=== PATIENT | female | born 1965 ===

== ENCOUNTER 2020-06-25 22:03 | Inpatient (IN) | payer SELFPAY ==
[2020-06-25 23:58] LABS: Basophils % (Auto) 0.3 % (0.0-1.8); Eosinophils % (Auto) 0.1 % (0.0-4.3); Hematocrit 33.3 % (30.3-42.9); Hemoglobin 11.4 gm/dl (10.1-14.3); Lymphocytes # (Auto) 1.8 K/mm3 (1.2-5.4); Lymphocytes % (Auto) 13.8 % (13.4-35.0); Mean Corpuscular HGB Conc 34 % (30-34); Mean Corpuscular Volume 82 fl (79-97); Monocytes % (Auto) 8.1 % (0.0-7.3); Platelet Count 300 K/mm3 (140-440); Red Blood Count 4.07 M/mm3 (3.65-5.03); Red Cell Distribution Width 13.8 % (13.2-15.2)
[2020-06-26 00:21] LABS: Alanine Aminotransferase 13 units/L (7-56); Albumin 3.8 g/dL (3.9-5); Blood Urea Nitrogen 11 mg/dL (7-17); Calcium 8.9 mg/dL (8.4-10.2); Hemolysis Index 0
[2020-06-26 00:22] LABS: Bilirubin,Urine NEG (Negative); Blood,Urine SM (Negative); Color,Urine Yellow (Yellow); Mucus,Urine FEW /HPF; Protein,Urine <15 mg/dL mg/dL (Negative)
[2020-06-26 00:31] LABS: BUN/Creatinine Ratio 16
[2020-06-26] MEDS ORDERED: SODIUM CHLORIDE 0.9% 1000 ML 1,000 ML IV ONE ×2 (03:54→05:37)
--- NOTE | 2020-06-26 03:58 | Emergency Department Report ---
ED Abdominal Pain HPI - General Chief Complaint: Abdominal Pain Stated Complaint: ABD PAIN Source: patient Mode of arrival: Ambulatory Limitations: No Limitations - History of Present Illness Initial Comments: The patient was evaluated in the emergency department for symptoms described in the history of present illness. He/she was evaluated in the context of the global COVID-19 pandemic, which necessitated consideration that the patient might be at risk for infection with the virus that causes COVID-19. Institutional protocols and algorithms that pertain to the evaluation of patients at risk for COVID-19 are in a state of rapid change based on information released by regulatory bodies including the CDC and federal and state organizations. These policies and algorithms were followed during the patient's care in the emergency department. Please note that these policies, procedures and recommendations changed on a rapid basis. 55-year-old female presents to the emergency room for abdominal pain and back pain x1 day. Has been having intermittent fevers x1 week with a T-max of 102. Patient states that she is currently being treated for urinary tract infection and is on Augmentin started 06/20/2020. Patient states that her abdominal pains are sharp and is been having dark mucus bloody stools. Patient admits to nausea and vomiting x1 this morning. She denies any dysuria. Does admit to diarrhea. Does not have any sick contacts, no recent travels. Denies any past medical history currently takes no medications on a daily basis. MD Complaint: abdominal pain Location: LLQ Severity scale (0 -10): 9 Quality: sharp Consistency: intermittent Improves With: nothing Worsens With: nothing Associated Symptoms: nausea, vomiting, diarrhea, fever - Related Data Allergies Allergy/AdvReac Type Severity Reaction Status Date / Time No Known Allergies Allergy Unverified 06/25/20 23:28 ED Review of Systems ROS: Stated complaint: ABD PAIN Other details as noted in HPI Comment: All other systems reviewed and negative ED Past Medical Hx - Past Medical History Previous Medical History?: No - Surgical History Past Surgical History?: No - Social History Smoking Status: Never Smoker Substance Use Type: None ED Physical Exam - General Limitations: No Limitations General appearance: alert - Head Head exam: Present: atraumatic, normocephalic - Eye Eye exam: Present: normal appearance - ENT ENT exam: Present: mucous membranes moist - Neck Neck exam: Present: normal inspection, full ROM - Respiratory Respiratory exam: Present: normal lung sounds bilaterally. Absent: chest wall tenderness, accessory muscle use - Cardiovascular Cardiovascular Exam: Present: tachycardia - GI/Abdominal GI/Abdominal exam: Present: soft, tenderness, guarding (Left lower quadrant), normal bowel sounds. Absent: distended - Neurological Exam Neurological exam: Present: alert, oriented X3 - Psychiatric Psychiatric exam: Present: normal affect, normal mood - Skin Skin exam: Present: warm, dry, intact, normal color. Absent: rash ED Course Vital Signs 06/25/20 23:19 Temperature 101.8 F H Pulse Rate 103 H Respiratory 16 Rate Blood Pressure 120/72 O2 Sat by Pulse 98 Oximetry - Reevaluation(s) Reevaluation #1: 06/26/20 05:39 Patient was reevaluated by this provider states that the pain medication has helped some. Spoke to Dr. Higginbotham general surgeon he would like patient to be admitted and consult. Spoke to hospitalist he is aware of the patient and is evaluating her for admis ross. Admit to the hospital with bridge orders placed. ED Medical Decision Making - Lab Data Result diagrams: 06/25/20 23:36 06/25/20 23:36 - Radiology Data Radiology results: report reviewed Patient: LENY JAMES MR #: [id number] : 1965 Acct:[id number] Age/Sex: 55 / F ADM Date: 06/25/20 Loc: ED Attending Dr: Ordering Physician: PATEL SOLIS Date of Service: 06/26/20 Procedure(s): CT abdomen pelvis w con Accession Number(s): [id number] cc: PATEL SOLIS CT abdomen pelvis w con INDICATION: Left lower quadrant abdominal pain. TECHNIQUE: All CT scans at this location are performed using the following dose modulation technique: Automated exposure control. Helical slices were obtained through the abdomen and pelvis. 100 cc of Omnipaque 300 is administered. COMPARISON: None available. FINDINGS: Abdomen: No acute abnormality is seen in the lower chest. There is a cyst in the right lobe of the liver. There is a 12 mm enhancing nodule in the dome of the liver anteriorly, series 2 image 27. The spleen, pancreas, adrenal glands, and kidneys show no acute abnormality. The aorta is normal in diameter. Pelvis: There is severe diverticulitis involving the mid sigmoid colon. There is marked inflammation involving the colon pericolonic fat. There is an intramural abscess which measures approximately 3 x 4.9 cm. There are a few small bubbles of extraluminal gas adjacent to the sigmoid colon. There is a 4.5 cm fat density mass with small soft tissue component in the left adnexa. The appendix is unremarkable. On review of bone windows, no acute osseous abnormalities are seen. IMPRESSION: 1. There is relatively severe sigmoid diverticulitis. There is an intramural abscess. There is a small amount of extraluminal gas adjacent to the sigmoid colon. 2. There is a 4.5 cm dermoid in the left adnexa. 3. There is a 12 mm enhancing nodule in the dome of the liver. This is not specific. This may represent an atypical hemangioma. Neoplastic process cannot be excluded Signer Name: Gautam Liz MD Signed: 06/26/2020 4:36 AM Workstation Name: [id number] Transcribed By: Dictated By: Gautam Liz MD Electronically Authenticated By: Gautam Liz MD Signed Date/Time: 06/26/20435 DD/ 9 TD/TT: - Medical Decision Making 55-year-old female presents to the emergency room for abdominal pain and back pain x1 day. Has been having intermittent fevers x1 week with a T-max of 102. Patient states that she is currently being treated for urinary tract infection and is on Augmentin started 06/20/2020. Patient states that her abdominal pains are sharp and is been having dark mucus bloody stools. Patient admits to nausea and vomiting x1 this morning. She denies any dysuria. Does admit to diarrhea. Does not have any sick contacts, no recent travels. Denies any past medical history currently takes no medications on a daily basis. CBC shows a mild WBC of 12.7 chemistry unremarkable urinalysis shows a small amount of blood WBCs of 7 - leukoesterase. IV, CT of abdomen and pelvis with contrast and normal saline 1 L has been ordered. CT abdomen and pelvis with contrast shows the patient has severe sigmoid diverticulitis with intramural abscess involving the mid sigmoid colon. 4.5 cm dermoid in the left adnexal and a 12 mm enhancing nodule in the dome of the liver. Patient was started on Levaquin 500 mg IV Flagyl 500 mg IV patient has been given morphine 2 mg IV Zofran 4 mg IV. Initiated another liter of fluids. Patient will be admitted to the hospital with a consult from Dr. Higginbotham general surgeon discuss plan with patient and daughter that she will need to be adm itted. - Differential Diagnosis Diverticulitis, kidney stone, urinary tract infection Critical care attestation.: If time is entered above; I have spent that time in minutes in the direct care of this critically ill patient, excluding procedure time. ED Disposition Clinical Impression: Diverticulitis, Abscess of sigmoid colon due to diverticulitis, Acute abdominal pain, Back pain Disposition: OP ADMIT IP TO THIS HOSP Is pt being admited?: Yes Does the pt Need Aspirin: No Condition: Stable Instructions: Abdominal Pain (ED) Referrals: KJ MCGOWAN MD [Primary Care Provider] - 3-5 Days
[2020-06-26] MEDS ORDERED: MORPHINE 2 MG/1 ML INJ IV ONE (04:00)
[2020-06-26] MEDS ORDERED: ONDANSETRON 4 MG/2 ML INJ IV ONE (04:00)
--- NOTE | 2020-06-26 04:40 | Cat Scan Report ---
CT abdomen pelvis w con INDICATION: Left lower quadrant abdominal pain. TECHNIQUE: All CT scans at this location are performed using the following dose modulation technique: Automated exposure control. Helical slices were obtained through the abdomen and pelvis. 100 cc of Omnipaque 30 0 is administered. COMPARISON: None available. FINDINGS: Abdomen: No acute abnormality is seen in the lower chest. There is a cyst in the right lobe of the li beatris. There is a 12 mm enhancing nodule in the dome of the liver anteriorly, series 2 image 27. The sp anish, pancreas, adrenal glands, and kidneys show no acute abnormality. The aorta is normal in diamete r. Pelvis: There is severe diverticulitis involving the mid sigmoid colon. There is marked inflammation involving the colon pericolonic fat. There is an intramural abscess which measures approximately 3 x 4.9 cm. There are a few small bubbles of extraluminal gas adjacent to the sigmoid colon. There is a 4.5 cm fat density mass with small soft tissue component in the left adnexa. The appendix is unremarkable. On review of bone windows, no acute osseous abnormalities are seen. IMPRESSION: 1. There is relatively severe sigmoid diverticulitis. There is an intramural abscess. There is a smal l amount of extraluminal gas adjacent to the sigmoid colon. 2. There is a 4.5 cm dermoid in the left adnexa. 3. There is a 12 mm enhancing nodule in the dome of the liver. This is not specific. This may represe nt an atypical hemangioma. Neoplastic process cannot be excluded Signer Name: Gautam Liz MD Signed: 06/26/2020 4:36 AM Workstation Name: [id number]
[2020-06-26] MEDS ORDERED: metroNIDAZOLE/NS 500 MG/100 ML 500 MG/100 ML BAG IV ONE (04:59)
--- NOTE | 2020-06-26 05:31 | History and Physical Report ---
History of Present Illness Date of examination: 06/26/20 Date of admission: 06/26/2020 Chief complaint: Abdominal Pain Nausea and Vomiting Past History Past Medical History: No medical history Past Surgical History: No surgical history Social history: no significant social history Family history: no significant family history Medications and Allergies Allergies Allergy/AdvReac Type Severity Reaction Status Date / Time No Known Allergies Allergy Unverified 06/25/20 23:28 Active Meds: Active Medications Levofloxacin/Dextrose (Levaquin 500mg/100ml) 500 mg in 100 mls @ 100 mls/hr IV ONCE ONE; Protocol Stop: 06/26/20 05:58 Review of Systems Constitutional: fever, chills Ears, nose, mouth and throat: no nasal congestion, no sore throat Cardiovascular: no chest pain, no palpitations Respiratory: no cough, no shortness of breath Gastrointestinal: abdominal pain, nausea, vomiting, diarrhea Genitourinary Female: no pelvic pain, no flank pain, no hematuria Musculoskeletal: no neck pain, no low back pain Integumentary: no rash, no pruritis Neurological: no headaches, no confusion Psychiatric: no anxiety, no depression Exam - Constitutional Vitals: Temp Pulse Resp BP Pulse Ox 101.8 F H 103 H 16 120/72 98 06/25/20 23:19 06/25/20 23:19 06/25/20 23:19 06/25/20 23:19 06/25/20 23:19 General appearance: Present: no acute distress, well-nourished - EENT Eyes: Present: PERRL, EOM intact. Absent: scleral icterus ENT: hearing intact, clear oral mucosa, dentition normal - Neck Neck: Present: supple, normal ROM - Respiratory Respiratory effort: normal Respiratory: bilateral: CTA - Cardiovascular Rhythm: regular Heart Sounds: Present: S1 & S2. Absent: gallop, systolic murmur, diastolic murmur, rub - Extremities Extremities: no ischemia, pulses intact, pulses symmetrical, No edema, Full ROM Peripheral Pulses: within normal limits - Abdominal General gastrointestinal: Present: soft, tender, non-distended, normal bowel sounds, mass Localized gastrointestinal: tender: LLQ - Integumentary Integumentary: Present: clear, warm, dry. Absent: rash - Musculoskeletal Musculoskeletal: strength equal bilaterally - Psychiatric Psychiatric: appropriate mood/affect, intact judgment & insight, memory intact, cooperative - Neurologic Neurologic: CNII-XII intact, moves all extremities Results - Labs CBC & Chem 7: 06/25/20 23:36 06/25/20 23:36 Labs: Abnormal lab results 06/25/20 06/25/20 06/25/20 Range/Units 00:01 23:36 23:36 WBC 12.7 H (4.5-11.0) K/mm3 [place] % (Auto) 8.1 H (0.0-7.3) % [place] # (Auto) 1.0 H (0.0-0.8) K/mm3 Seg Neutrophils % 77.7 H (40.0-70.0) % Seg Neutrophils # 9.9 H (1.8-7.7) K/mm3 Glucose 107 H (65-100) mg/dL Albumin 3.8 L (3.9-5) g/dL Urine WBC (Auto) 7.0 H (0.0-6.0) /HPF Assessment and Plan - Patient Problems (1) Diverticulitis Current Visit: Yes Status: Acute (2) DVT prophylaxis Current Visit: Yes Status: Acute (3) Full code status Current Visit: Yes Status: Acute
[2020-06-26] MEDS ORDERED: MORPHINE 2 MG/1 ML INJ IV PRN (05:58)
[2020-06-26] MEDS ORDERED: ACETAMINOPHEN 325 MG TAB PO PRN (05:58)
[2020-06-26] MEDS ORDERED: ONDANSETRON 4 MG/2 ML INJ IV PRN (05:58)
--- NOTE | 2020-06-26 05:58 | History and Physical Report ---
History of Present Illness Date of examination: 06/26/20 Date of admission: 06/26/2020 Chief complaint: Abdominal pain Nausea and Vomiting. Fever History of present illness: 55-year-old female with no significant past medical history presenting to the emergency room today complaining of abdominal pain and back pain which has been ongoing for about 1 day. She has also been having some diarrhea which is occasionally bloody. She has had some low-grade fever at home. Patient was just recently treated at an outside facility for UTI and she had been on Augmentin. She has been having nausea and vomiting, no chest pain or shortness of breath, no hematuria or dysuria, no headache or dizziness, denies any cough, denies any sick contacts and no recent travel. Denies any contact with anyone with COVID- 19. Work-up in the emergency room today including CT scan of the abdomen and pelvis reveals: 1. There is relatively severe sigmoid diverticulitis. There is an intramural abscess. There is a small amount of extraluminal gas adjacent to the sigmoid colon. 2. There is a 4.5 cm dermoid in the left adnexa. 3. There is a 12 mm enhancing nodule in the dome of the liver. This is not specific. This may represent an atypical hemangioma. Neoplastic process cannot be excluded . Patient has been started on empiric IV antibiotics and IV fluid. General surgeon Dr. Higginbotham has been consulted and notified by the ER physician. Past History Past Medical History: No medical history Past Surgical History: No surgical history Social history: no significant social history Family history: no significant family history Medications and Allergies Allergies Allergy/AdvReac Type Severity Reaction Status Date / Time No Known Allergies Allergy Unverified 06/25/20 23:28 Active Meds: Active Medications Levofloxacin/Dextrose (Levaquin 500mg/100ml) 500 mg in 100 mls @ 100 mls/hr IV ONCE ONE; Protocol Stop: 06/26/20 05:58 Sodium Chloride (Nacl 0.9% 1000 Ml) 1,000 mls @ 999 mls/hr IV BOLUS ONE Stop: 06/26/20 06:37 Review of Systems Constitutional: fever, no chills Cardiovascular: no chest pain, no palpitations Respiratory: no cough, no shortness of breath Gastrointestinal: abdominal pain, nausea, vomiting, diarrhea, hematochezia, no hematemesis Genitourinary Female: no pelvic pain, no flank pain, no hematuria Musculoskeletal: low back pain, no neck pain Neurological: no headaches, no confusion Psychiatric: no anxiety, no depression Exam - Constitutional Vitals: Temp Pulse Resp BP Pulse Ox 101.8 F H 103 H 16 120/72 98 06/25/20 23:19 06/25/20 23:19 06/25/20 23:19 06/25/20 23:19 06/25/20 23:19 General appearance: Present: no acute distress, well-nourished - EENT Eyes: Present: PERRL, EOM intact. Absent: scleral icterus ENT: hearing intact, clear oral mucosa, dentition normal - Neck Neck: Present: supple, normal ROM - Respiratory Respiratory effort: normal Respiratory: bilateral: CTA - Cardiovascular Rhythm: regular Heart Sounds: Present: S1 & S2. Absent: gallop, systolic murmur, diastolic murmur, rub - Extremities Extremities: no ischemia, pulses intact, pulses symmetrical, No edema, Full ROM Peripheral Pulses: within normal limits - Abdominal General gastrointestinal: Present: soft, tender, non-distended, normal bowel sounds. Absent: mass Localized gastrointestinal: tender: LLQ, guarding: LLQ - Integumentary Integumentary: Present: clear, warm, dry. Absent: rash - Musculoskeletal Musculoskeletal: strength equal bilaterally - Psychiatric Psychiatric: appropriate mood/affect, intact judgment & insight, memory intact, cooperative - Neurologic Neurologic: CNII-XII intact, moves all extremities Results - Labs CBC & Chem 7: 06/25/20 23:36 06/25/20 23:36 Labs: Abnormal lab results 06/25/20 06/25/20 06/25/20 Range/Units 00:01 23:36 23:36 WBC 12.7 H (4.5-11.0) K/mm3 [place] % (Auto) 8.1 H (0.0-7.3) % [place] # (Auto) 1.0 H (0.0-0.8) K/mm3 Seg Neutrophils % 77.7 H (40.0-70.0) % Seg Neutrophils # 9.9 H (1.8-7.7) K/mm3 Glucose 107 H (65-100) mg/dL Albumin 3.8 L (3.9-5) g/dL Urine WBC (Auto) 7.0 H (0.0-6.0) /HPF Assessment and Plan - Patient Problems (1) Diverticulitis Current Visit: Yes Status: Acute Plan to address problem: Patient placed on empiric IV antibiotics. General surgeon has also been consulted for evaluation and recommendation. (2) DVT prophylaxis Current Visit: Yes Status: Acute Plan to address problem: Patient placed on sequential compression device. (3) Full code status Current Visit: Yes Status: Acute
[2020-06-26] MEDS: SODIUM CHLORIDE 0.9% 1000 ML 1,000 ML IV SCH ×2 (09:25→20:24)
--- NOTE | 2020-06-26 14:00 | Event Note ---
Date: 06/26/20 Diverticular abscess noted. NPO after MN except sips of water with meds. Will attempt drainage tomorrow.
[2020-06-26] MEDS: metroNIDAZOLE/NS 500 MG/100 ML 500 MG/100 ML BAG IV SCH ×2 (15:01→22:06)
--- NOTE | 2020-06-26 15:12 | Event Note ---
Date: 06/26/20 Patient seen and examined 55-year-old female with no significant past medical history presenting to the emergency room complaining of abdominal pain and back pain which has been ongoing for about 1 day along with diarrhea and some low-grade fever at home. Patient was just recently treated at an outside facility for UTI and she had been on Augmentin. Work-up in the emergency room today including CT scan of the abdomen and pelvis reveals: 1. There is relatively severe sigmoid diverticulitis. There is an intramural abscess. There is a small amount of extraluminal gas adjacent to the sigmoid colon. 2. There is a 4.5 cm dermoid in the left adnexa. 3. There is a 12 mm enhancing nodule in the dome of the liver. This is not specific. This may represent an atypical hemangioma. Neoplastic process cannot be excluded . Patient has been started on empiric IV antibiotics and IV fluid. General surgeon Dr. Higginbotham has been consulted and recommended percutaneous drainage IR consulted and plan for percutaneous drainage tomorrow Continue current management and plan, monitor clinically
--- NOTE | 2020-06-26 16:40 | Consultation ---
History of Present Illness Consult date: 06/26/20 Reason for consult: abdominal pain - History of present illness History of present illness: 55 yo female with LLQ pain Past History Past Medical History: No medical history Past Surgical History: No surgical history Social history: no significant social history Family history: no significant family history Medications and Allergies Allergies Allergy/AdvReac Type Severity Reaction Status Date / Time No Known Allergies Allergy Unverified 06/25/20 23:28 Active Meds: Active Medications Acetaminophen (Tylenol) 650 mg PO Q4H PRN PRN Reason: Pain MILD(1-3)/Fever >100.5/JERNIGAN Sodium Chloride (Nacl 0.9% 1000 Ml) 1,000 mls @ 125 mls/hr IV DIRECT MUSA Last Admin: 06/26/20 09:25 Dose: 125 mls/hr Documented by: Levofloxacin/Dextrose (Levaquin 750mg/150ml) 750 mg in 150 mls @ 100 mls/hr IV Q24HR MUSA; Protocol Last Admin: 06/26/20 09:24 Dose: 100 mls/hr Documented by: Metronidazole (Flagyl 500 Mg/100 Ml) 500 mg in 100 mls @ 100 mls/hr IV Q8HR MUSA; Protocol Last Admin: 06/26/20 15:01 Dose: 100 mls/hr Documented by: Morphine Sulfate (Morphine) 2 mg IV Q4H PRN PRN Reason: Pain, Moderate (4-6) Last Admin: 06/26/20 15:17 Dose: 2 mg Documented by: Ondansetron HCl (Zofran) 4 mg IV Q8H PRN PRN Reason: Nausea And Vomiting Sodium Chloride (Sodium Chloride Flush Syringe 10 Ml) 10 ml IV BID MUSA Last Admin: 06/26/20 09:25 Dose: 10 ml Documented by: Sodium Chloride (Sodium Chloride Flush Syringe 10 Ml) 10 ml IV PRN PRN PRN Reason: LINE FLUSH Review of Systems All systems: negative (none) Exam Vital Signs Temp Pulse Resp BP Pulse Ox 101.8 F H 103 H 16 120/72 98 06/25/20 23:19 06/25/20 23:19 06/25/20 23:19 06/25/20 23:19 06/25/20 23:19 - General physical appearance Positive: well developed, well nourished, no distress - Eyes Positive: PERRL, normal occular movement - ENT Positive: normal pinna, normal nares, normal mucosa, no hearing loss, no congestion - Neck Positive: no masses, no bruits, trachea midline, no venous distension - Respiratory Positive: normal expansion, normal respiratory effort, clear to auscultation - Cardiovascular Rhythm: regular Heart Sounds: Present: S1 & S2. Absent: rub, click - Extremities Extremities: no ischemia, pulses symmetrical, No edema - Breasts Breasts: normal, no mass, no skin changes - Abdomen Abdomen: Present: other (Soft with BLQ tenderness, L>R; No rebound or guarding. BS hypoactive.) Hernia: none - Genitourinary Male Genitourinary: normal Female Genitourinary: normal - Integumentary no rash, no growths, no abnormal pigmentation - Neurologic Neurologic: alert and oriented to time, place and person, motor strength and sensation are grossly intact - Musculoskeletal normal gait, normal posture - Psychiatric Psychiatric: appropriate mood/affect, intact judgment & insight Results - Labs 06/25/20 23:36 06/25/20 23:36 Abnormal lab results 06/25/20 06/25/20 06/25/20 Range/Units 00:01 23:36 23:36 WBC 12.7 H (4.5-11.0) K/mm3 [place] % (Auto) 8.1 H (0.0-7.3) % [place] # (Auto) 1.0 H (0.0-0.8) K/mm3 Seg Neutrophils % 77.7 H (40.0-70.0) % Seg Neutrophils # 9.9 H (1.8-7.7) K/mm3 Glucose 107 H (65-100) mg/dL Albumin 3.8 L (3.9-5) g/dL Urine WBC (Auto) 7.0 H (0.0-6.0) /HPF Diabetes panel 06/25/20 Range/Units 23:36 Sodium 137 (137-145) mmol/L Potassium 3.8 (3.6-5.0) mmol/L Chloride 98.3 (98-107) mmol/L Carbon Dioxide 24 (22-30) mmol/L BUN 11 (7-17) mg/dL Creatinine 0.7 (0.6-1.2) mg/dL Glucose 107 H (65-100) mg/dL Calcium 8.9 (8.4-10.2) mg/dL AST 14 (5-40) units/L ALT 13 (7-56) units/L Alkaline Phosphatase 84 (35-129) units/L Total Protein 7.7 (6.3-8.2) g/dL Albumin 3.8 L (3.9-5) g/dL Calcium panel 06/25/20 Range/Units 23:36 Calcium 8.9 (8.4-10.2) mg/dL Albumin 3.8 L (3.9-5) g/dL Pituitary panel 06/25/20 Range/Units 23:36 Sodium 137 (137-145) mmol/L Potassium 3.8 (3.6-5.0) mmol/L Chloride 98.3 (98-107) mmol/L Carbon Dioxide 24 (22-30) mmol/L BUN 11 (7-17) mg/dL Creatinine 0.7 (0.6-1.2) mg/dL Glucose 107 H (65-100) mg/dL Calcium 8.9 (8.4-10.2) mg/dL Adrenal panel 06/25/20 Range/Units 23:36 Sodium 137 (137-145) mmol/L Potassium 3.8 (3.6-5.0) mmol/L Chloride 98.3 (98-107) mmol/L Carbon Dioxide 24 (22-30) mmol/L BUN 11 (7-17) mg/dL Creatinine 0.7 (0.6-1.2) mg/dL Glucose 107 H (65-100) mg/dL Calcium 8.9 (8.4-10.2) mg/dL Total Bilirubin 0.40 (0.1-1.2) mg/dL AST 14 (5-40) units/L ALT 13 (7-56) units/L Alkaline Phosphatase 84 (35-129) units/L Total Protein 7.7 (6.3-8.2) g/dL Albumin 3.8 L (3.9-5) g/dL - Imaging CT scan - abdomen: report reviewed CT scan - pelvis: report reviewed Assessment and Plan - Patient Problems (1) Abscess of sigmoid colon due to diverticulitis Current Visit: Yes Status: Acute Plan to address problem: 1) NPO 2) Broad spectrum IV antibiotics 3) IR drainage tomorrow 4) Surgical intervention if the above fails (doubtful)
[2020-06-27] MEDS: metroNIDAZOLE/NS 500 MG/100 ML 500 MG/100 ML BAG IV SCH ×3 (05:48→21:27)
[2020-06-27 06:23] LABS: Basophils % (Auto) 0.3 % (0.0-1.8); Eosinophils % (Auto) 0.1 % (0.0-4.3); Hematocrit 31.4 % (30.3-42.9); Hemoglobin 10.6 gm/dl (10.1-14.3); Lymphocytes # (Auto) 1.1 K/mm3 (1.2-5.4); Lymphocytes % (Auto) 10.6 % (13.4-35.0); Mean Corpuscular HGB Conc 34 % (30-34); Mean Corpuscular Volume 81 fl (79-97); Monocytes # (Auto) 0.8 K/mm3 (0.0-0.8); Monocytes % (Auto) 7.8 % (0.0-7.3); Platelet Count 267 K/mm3 (140-440); Red Blood Count 3.89 M/mm3 (3.65-5.03); Red Cell Distribution Width 13.8 % (13.2-15.2)
[2020-06-27 06:31] LABS: INR 1.36 (0.87-1.13)
[2020-06-27 06:44] LABS: Blood Urea Nitrogen 8 mg/dL (7-17); Calcium 8.7 mg/dL (8.4-10.2); Hemolysis Index 1
[2020-06-27 06:48] LABS: BUN/Creatinine Ratio 13
[2020-06-27] MEDS ORDERED: POTASSIUM CHLORIDE ER 20 MEQ TAB PO SCH (08:00)
[2020-06-27] MEDS ORDERED: fentaNYL 100 MCG/2 ML INJ ONE (09:24)
[2020-06-27] MEDS ORDERED: MIDAZOLAM 5 MG/5 ML INJ MDV IV ONE ×2 (09:24→09:34)
[2020-06-27] MEDS ORDERED: fentaNYL 100 MCG/2 ML INJ IV ONE (09:34)
--- NOTE | 2020-06-27 10:56 | Event Note ---
Date: 06/27/[address] guided drainage of the abdomen and pelvis. Ems Manager CT performed. The collection of fluid has been replaced by gas and there is more foci of gas around the inflamed sigmoid colon. This is concerning for perforated diverticulitis. In order to fully evaluate this possibility, I contacted Dr. Higginbotham. I will order a CT of the abdomen and pelvis with IV contrast for Dr. Higginbotham. Drainage cancelled.
--- NOTE | 2020-06-27 11:16 | Progress Note ---
Assessment and Plan - Patient Problems (1) Abscess of sigmoid colon due to diverticulitis Current Visit: Yes Status: Acute Plan to address problem: 1) Pt is afebrile and vital signs are normal. WBC count has normalized. Will await the results of the repeat CT abdomen and pelvis ordered by Dr. Koo. 2) Continue bowel rest and IV antibiotics for now. Subjective Date of service: 06/27/20 Narrative: See Dr. Koo's note of 10:51 this morning. Objective Vital Signs - 12hr 06/27/20 06/27/20 04:44 10:36 Temperature 98.7 F Pulse Rate 80 Pulse Rate [Pre 89 -Procedure] Respiratory 18 Rate Respiratory 13 Rate [Pre- Procedure] Blood Pressure 126/70 Blood Pressure 135/75 [Pre-Procedure] O2 Sat by Pulse 98 Oximetry O2 Sat by Pulse 100 Oximetry [Pre- Procedure] - Labs 06/27/20 05:12 06/27/20 05:12 Diabetes panel 06/27/20 Range/Units 05:12 Sodium 143 (137-145) mmol/L Potassium 3.4 L (3.6-5.0) mmol/L Chloride 106.1 (98-107) mmol/L Carbon Dioxide 23 (22-30) mmol/L BUN 8 (7-17) mg/dL Creatinine 0.6 (0.6-1.2) mg/dL Glucose 78 (65-100) mg/dL Calcium 8.7 (8.4-10.2) mg/dL Calcium panel 06/27/20 Range/Units 05:12 Calcium 8.7 (8.4-10.2) mg/dL Pituitary panel 06/27/20 Range/Units 05:12 Sodium 143 (137-145) mmol/L Potassium 3.4 L (3.6-5.0) mmol/L Chloride 106.1 (98-107) mmol/L Carbon Dioxide 23 (22-30) mmol/L BUN 8 (7-17) mg/dL Creatinine 0.6 (0.6-1.2) mg/dL Glucose 78 (65-100) mg/dL Calcium 8.7 (8.4-10.2) mg/dL Adrenal panel 06/27/20 Range/Units 05:12 Sodium 143 (137-145) mmol/L Potassium 3.4 L (3.6-5.0) mmol/L Chloride 106.1 (98-107) mmol/L Carbon Dioxide 23 (22-30) mmol/L BUN 8 (7-17) mg/dL Creatinine 0.6 (0.6-1.2) mg/dL Glucose 78 (65-100) mg/dL Calcium 8.7 (8.4-10.2) mg/dL
--- NOTE | 2020-06-27 11:36 | Cat Scan Report ---
CT ABDOMEN AND PELVIS WITH CONTRAST INDICATION / CLINICAL INFORMATION: Diverticulitis TECHNIQUE: Axial CT images were obtained through the abdomen and pelvis after 100 cc Omnipaque 300 milligrams pe rcent IV contrast. All CT scans at this location are performed using CT dose reduction for ALARA by means of automated exposure control. COMPARISON: Exam is compared to 06/26/2020 FINDINGS: LOWER CHEST: No significant abnormality. LIVER: Hepatic cyst is again identified. Small cavernous hemangioma dome the liver again noted GALLBLADDER: No significant abnormality. BILE DUCTS: No significant abnormality. PANCREAS: No significant abnormality. SPLEEN: No significant abnormality. ADRENALS: No significant abnormality. RIGHT KIDNEY and URETER: No significant abnormality. LEFT KIDNEY and URETER: No significant abnormality. STOMACH and SMALL BOWEL: No significant abnormality. COLON: Again noted inflammatory changes sigmoid colon consistent with diverticulitis. Abscess is agai n identified with increased in air content as compared to previous exam. The abscess measures approxi mately 5.2 x 3.9 cm. APPENDIX: No significant abnormality. PERITONEUM: No free fluid. No free air. No fluid collection. LYMPH NODES: No significant adenopathy. AORTA and ARTERIES: No significant abnormality. IVC and VEINS: No significant abnormality. URINARY BLADDER: No significant abnormality. REPRODUCTIVE ORGANS: 4.5 cm fat-containing lesion noted left adnexa ADDITIONAL FINDINGS: None. SKELETAL SYSTEM: No significant abnormality. IMPRESSION: 1. Persistent abscess secondary to diverticulitis sigmoid colon 2. Stable dermoid left adnexa 3. Small cavernous hemangioma dome of the liver 4. Hepatic cyst Signer Name: Arnaldo Brock MD Signed: 06/27/2020 11:31 AM Workstation Name: [id number]
[2020-06-27] MEDS: SODIUM CHLORIDE 0.9% 1000 ML 1,000 ML IV SCH (13:03)
--- NOTE | 2020-06-27 14:48 | Progress Note ---
Assessment and Plan --Diverticulitis Patient placed on empiric IV antibiotics. General surgeon has also been consulted for evaluation and recommendation. --sigmoid colon abscess Possibility for perforated diverticulitid not drainable per IR, cont iv abx, bowel rest, IV fluid --Hypokalemia, replete, monitor BMP --SIRS w/o sepsis, POA presented with fever, leukocytosis and abdominal abscess cont abx -- DVT prophylaxis Patient placed on sequential compression device. -- Full code status Brief History: 55-year-old female with no significant past medical history presenting to the emergency room complaining of abdominal pain and back pain which has been ongoing for about 1 day along with diarrhea and some low-grade fever at home. Patient was just recently treated at an outside facility for UTI and she had been on Augmentin. Work-up in the emergency room today including CT scan of the abdomen and pelvis reveals: 1. There is relatively severe sigmoid diverticulitis. There is an intramural abscess. There is a small amount of extraluminal gas adjacent to the sigmoid colon. 2. There is a 4.5 cm dermoid in the left adnexa. 3. There is a 12 mm enhancing nodule in the dome of the liver. This is not specific. This may represent an atypical hemangioma. Neoplastic process cannot be excluded . Patient has been started on empiric IV antibiotics and IV fluid. 06/26: General surgeon Dr. Higginbotham has been consulted and recommended percutaneous drainage IR consulted and planned for percutaneous drainage tomorrow. Continue current management and plan, monitor clinically 06/27: Patient Brought downstairs for CT guided drainage of the abdomen and pelvis. Per IR The collection of fluid has been replaced by gas and there is more foci of gas around the inflamed sigmoid colon. Aborted the procedure, repeat CT showed persisted abscess but no perforation. Surgery and IR now recommended medical Mx. cont Iv abx Subjective Date of service: 06/27/20 Interval history: Patient seen and examined c/o abdominal pain afebrile vitals noted Objective - Exam Narrative Exam: General appearance: Present: no acute distress, well-nourished - EENT Eyes: Present: PERRL, EOM intact. Absent: scleral icterus ENT: hearing intact, clear oral mucosa, dentition normal - Neck Neck: Present: supple, normal ROM - Respiratory Respiratory effort: normal Respiratory: bilateral: CTA - Cardiovascular Rhythm: regular Heart Sounds: Present: S1 & S2. Absent: gallop, systolic murmur, diastolic murmur, rub - Extremities Extremities: no ischemia, pulses intact, pulses symmetrical, No edema, Full ROM Peripheral Pulses: within normal limits - Abdominal General gastrointestinal: Present: soft, tender, non-distended, normal bowel sounds. Absent: mass Localized gastrointestinal: tender: LLQ, guarding: LLQ - Integumentary Integumentary: Present: clear, warm, dry. Absent: rash - Musculoskeletal Musculoskeletal: strength equal bilaterally - Psychiatric Psychiatric: appropriate mood/affect, intact judgment & insight, memory intact, cooperative - Neurologic Neurologic: CNII-XII intact, moves all extremities - Constitutional Vitals: Vital Signs - 12hr 06/27/20 06/27/20 06/27/20 04:44 10:36 12:11 Temperature 98.7 F 98.8 F Pulse Rate 80 79 Pulse Rate [Pre 89 -Procedure] Respiratory 18 20 Rate Respiratory 13 Rate [Pre- Procedure] Blood Pressure 126/70 131/72 Blood Pressure 135/75 [Pre-Procedure] O2 Sat by Pulse 98 97 Oximetry O2 Sat by Pulse 100 Oximetry [Pre- Procedure] - Labs CBC & Chem 7: 06/28/20 09:54 06/28/20 09:54 Labs: Abnormal lab results 06/27/20 06/27/20 06/27/20 Range/Units 05:12 05:12 05:12 MCH 27 L (28-32) pg Lymph % (Auto) 10.6 L (13.4-35.0) % [place] % (Auto) 7.8 H (0.0-7.3) % Lymph # (Auto) 1.1 L (1.2-5.4) K/mm3 Seg Neutrophils % 81.2 H (40.0-70.0) % Seg Neutrophils # 8.0 H (1.8-7.7) K/mm3 PT 17.1 H (12.2-14.9) Sec. INR 1.36 H (0.87-1.13) Potassium 3.4 L (3.6-5.0) mmol/L
[2020-06-27] MEDS: D5W/0.9% NACL 1,000 ML IV SCH (23:19)
[2020-06-28] MEDS: metroNIDAZOLE/NS 500 MG/100 ML 500 MG/100 ML BAG IV SCH ×3 (05:35→22:01)
--- NOTE | 2020-06-28 09:38 | Progress Note ---
Assessment and Plan - Patient Problems (1) Abscess of sigmoid colon due to diverticulitis Current Visit: Yes Status: Acute Plan to address problem: 1) Appears to be improving. I left a message with Dr. Koo to review her repeat CT abdomen & pelvis. IR drainage would be nice if it is possible. 2) Continue IV antibiotics and bowel rest for now. Subjective Date of service: 06/28/20 Patient Reports: Positive: no new complaints (Abdominal pain is about the same. Daughter served as tailings dam laborer via pt's phone.) Objective Vital Signs - 12hr 06/27/20 06/27/20 06/28/20 22:00 22:01 03:16 Temperature 98.2 F Pulse Rate 78 Respiratory 18 Rate Blood Pressure 140/83 O2 Sat by Pulse 99 97 98 Oximetry 06/28/20 04:39 Temperature 98.3 F Pulse Rate 70 Respiratory 16 Rate Blood Pressure 140/78 O2 Sat by Pulse 96 Oximetry - Abdomen other (Abdomen is softer c/w yesterday. Still with some LLQ tenderness but no rebound or guarding. BS are normoactive.) - Labs 06/27/20 05:12 06/27/20 05:12 - Imaging CT scan - abdomen: report reviewed CT Scan - head: report reviewed
[2020-06-28 10:31] LABS: Basophils % (Auto) 0.3 % (0.0-1.8); Eosinophils % (Auto) 0.1 % (0.0-4.3); Hematocrit 33.6 % (30.3-42.9); Hemoglobin 11.3 gm/dl (10.1-14.3); Lymphocytes # (Auto) 1.2 K/mm3 (1.2-5.4); Lymphocytes % (Auto) 15.6 % (13.4-35.0); Mean Corpuscular HGB Conc 34 % (30-34); Mean Corpuscular Volume 81 fl (79-97); Monocytes # (Auto) 0.4 K/mm3 (0.0-0.8); Monocytes % (Auto) 5.6 % (0.0-7.3); Platelet Count 361 K/mm3 (140-440); Red Blood Count 4.13 M/mm3 (3.65-5.03)
[2020-06-28 10:38] LABS: Blood Urea Nitrogen 7 mg/dL (7-17); Calcium 8.8 mg/dL (8.4-10.2); Hemolysis Index 4
[2020-06-28 10:41] LABS: BUN/Creatinine Ratio 14
--- NOTE | 2020-06-28 14:58 | Event Note ---
Date: 06/28/[address] Higginbotham and Dr. Hawley. The collection has been mostly replaced with gas making drainage suboptimal at this time. After discussion, pt may benefit from repeating CT scan of the abdomen and pelvis with IV contrast in a few days for re-evaluation for possible drainage if the collection changes further, possibly on friday.
--- NOTE | 2020-06-28 17:18 | Progress Note ---
Assessment and Plan --Diverticulitis Patient placed on empiric IV antibiotics. General surgeon has also been consulted for evaluation and recommendation. --sigmoid colon abscess Possibility for perforated diverticulitid not drainable per IR, cont iv abx, bowel rest, IV fluid --Hypokalemia, replete, monitor BMP --SIRS w/o sepsis, POA presented with fever, leukocytosis and abdominal abscess cont abx -- DVT prophylaxis Patient placed on sequential compression device. -- Full code status Brief History: 55-year-old female with no significant past medical history presenting to the emergency room complaining of abdominal pain and back pain which has been ongoing for about 1 day along with diarrhea and some low-grade fever at home. Patient was just recently treated at an outside facility for UTI and she had been on Augmentin. Work-up in the emergency room today including CT scan of the abdomen and pelvis reveals: 1. There is relatively severe sigmoid diverticulitis. There is an intramural abscess. There is a small amount of extraluminal gas adjacent to the sigmoid colon. 2. There is a 4.5 cm dermoid in the left adnexa. 3. There is a 12 mm enhancing nodule in the dome of the liver. This is not specific. This may represent an atypical hemangioma. Neoplastic process cannot be excluded . Patient has been started on empiric IV antibiotics and IV fluid. 06/26: General surgeon Dr. Higginbotham has been consulted and recommended percutaneous drainage IR consulted and planned for percutaneous drainage tomorrow. Continue current management and plan, monitor clinically 06/27: Patient Brought downstairs for CT guided drainage of the abdomen and pelvis. Per IR The collection of fluid has been replaced by gas and there is more foci of gas around the inflamed sigmoid colon. Aborted the procedure, repeat CT showed persisted abscess but no perforation. Surgery and IR now recommended medical Mx. cont Iv abx 06/28: Discussed case with Dr. Higginbotham and IR. The collection has been mostly replaced with gas, making drainage suboptimal at this time. Cont abx, keep NPO, CT scan of the abdomen and pelvis with IV contrast in a few days for re- evaluation for possible drainage if the collection changes further, possibly on friday. May need to start on TPN - defer to surgery. cont D5 NS, replete electrolytes as needed. Subjective Date of service: 06/28/20 Interval history: Patient seen and examined c/o abdominal pain afebrile vitals noted Objective - Exam Narrative Exam: General appearance: Present: no acute distress, well-nourished - EENT Eyes: Present: PERRL, EOM intact. Absent: scleral icterus ENT: hearing intact, clear oral mucosa, dentition normal - Neck Neck: Present: supple, normal ROM - Respiratory Respiratory effort: normal Respiratory: bilateral: CTA - Cardiovascular Rhythm: regular Heart Sounds: Present: S1 & S2. Absent: gallop, systolic murmur, diastolic murmur, rub - Extremities Extremities: no ischemia, pulses intact, pulses symmetrical, No edema, Full ROM Peripheral Pulses: within normal limits - Abdominal General gastrointestinal: Present: soft, tender, non-distended, normal bowel sounds. Absent: mass Localized gastrointestinal: tender: LLQ, guarding: LLQ - Integumentary Integumentary: Present: clear, warm, dry. Absent: rash - Musculoskeletal Musculoskeletal: strength equal bilaterally - Psychiatric Psychiatric: appropriate mood/affect, intact judgment & insight, memory intact, cooperative - Neurologic Neurologic: CNII-XII intact, moves all extremities - Constitutional Vitals: Vital Signs - 12hr 06/28/20 06/28/20 12:06 16:36 Temperature 97.0 F L 97.0 F L Pulse Rate 71 63 Respiratory 20 20 Rate Blood Pressure 110/71 128/80 O2 Sat by Pulse 96 98 Oximetry - Labs CBC & Chem 7: 06/28/20 09:54 06/28/20 09:54 Labs: Abnormal lab results 06/28/20 06/28/20 Range/Units 09:54 09:54 MCH 27 L (28-32) pg Seg Neutrophils % 78.4 H (40.0-70.0) % Potassium 3.5 L (3.6-5.0) mmol/L Creatinine 0.5 L (0.6-1.2) mg/dL Glucose 105 H (65-100) mg/dL
[2020-06-28] MEDS: D5W/0.9% NACL 1,000 ML IV SCH (18:34)
[2020-06-28] MEDS: POTASSIUM CHLORIDE 10 MEQ 10 MEQ/100 ML BAG IV SCH ×2 (20:40→22:11)
[2020-06-29] MEDS: POTASSIUM CHLORIDE 10 MEQ 10 MEQ/100 ML BAG IV SCH ×3 (05:17→06:19)
[2020-06-29] MEDS: metroNIDAZOLE/NS 500 MG/100 ML 500 MG/100 ML BAG IV SCH ×3 (06:16→21:56)
--- NOTE | 2020-06-29 07:15 | Progress Note ---
Assessment and Plan Assessment and plan: --Diverticulitis Patient placed on empiric IV antibiotics. General surgeon has also been consulted for evaluation and recommendation. --sigmoid colon abscess Possibility for perforated diverticulitid not drainable per IR, cont iv abx, bowel rest, IV fluid --Hypokalemia, replete, monitor BMP --SIRS w/o sepsis, POA presented with fever, leukocytosis and abdominal abscess cont abx -- DVT prophylaxis Patient placed on sequential compression device. -- Full code status Brief History: 55-year-old female with no significant past medical history presenting to the emergency room complaining of abdominal pain and back pain which has been ongoing for about 1 day along with diarrhea and some low-grade fever at home. Patient was just recently treated at an outside facility for UTI and she had been on Augmentin. Work-up in the emergency room today including CT scan of the abdomen and pelvis reveals: 1. There is relatively severe sigmoid diverticulitis. There is an intramural abscess. There is a small amount of extraluminal gas adjacent to the sigmoid colon. 2. There is a 4.5 cm dermoid in the left adnexa. 3. There is a 12 mm enhancing nodule in the dome of the liver. This is not specific. This may represent an atypical hemangioma. Neoplastic process cannot be excluded . Patient has been started on empiric IV antibiotics and IV fluid. 06/26: General surgeon Dr. Higginbotham has been consulted and recommended percutaneous drainage IR consulted and planned for percutaneous drainage tomorrow. Continue current management and plan, monitor clinically 06/27: Patient Brought downstairs for CT guided drainage of the abdomen and pelvis. Per IR The collection of fluid has been replaced by gas and there is more foci of gas around the inflamed sigmoid colon. Aborted the procedure, repeat CT showed persisted abscess but no perforation. Surgery and IR now recommended medical Mx. cont Iv abx 06/28: Discussed case with Dr. Higginbotham and IR. The collection has been mostly replaced with gas, making drainage suboptimal at this time. Cont abx, keep NPO, CT scan of the abdomen and pelvis with IV contrast in a few days for re- evaluation for possible drainage if the collection changes further, possibly on friday. May need to start on TPN - defer to surgery. cont D5 NS, replete electrolytes as needed. 06/29: Reviewed the notes from Dr. Higginbotham and Dr. Koo. The collection has been mostly replaced with gas, making drainage suboptimal at this time. Cont abx, keep NPO, CT scan of the abdomen and pelvis with IV contrast in a few days for re-evaluation for possible drainage if the collection changes further, possibly on friday. May need to start on TPN - defer to surgery. cont D5 NS, replete electrolytes as needed. History Interval history: Patient was seen and evaluated this morning Admitted for diverticulitis with abscess collection Patient did not have any complaints, patient does not speak Burmese and I use her daughter as television schedule coordinator. Patient does not have any abdominal pain, nausea or vomiting Hospitalist Physical - Physical exam Narrative exam: Not in cardiopulmonary distress. The patient appeared well nourished and normally developed. Vital signs as documented. Head exam is unremarkable. No scleral icterus . Neck is without jugular venous distension, thyromegaly, or carotid bruits. Lungs are clear to auscultation. Cardiac exam reveals regular rate and Rhythm. Abdominal exam reveals abdominal tenderness. Extremities are nonedematous and both femoral and pedal pulses are normal. INSPECTOR [employer]CISION [employer]SEMBLY: Alert and oriented 3. No focal weakness. - Constitutional Vitals: Temp Pulse Resp BP Pulse Ox 99.2 F 60 18 147/79 99 06/28/20 21:58 06/28/20 21:58 06/28/20 21:58 06/28/20 21:58 06/28/20 21:58 General appearance: Present: no acute distress, well-nourished Results - Labs CBC & Chem 7: 06/28/20 09:54 06/29/20 06:36 Labs: Laboratory Last Values WBC 7.5 K/mm3 (4.5-11.0) 06/28/20 09:54 RBC 4.13 M/mm3 (3.65-5.03) 06/28/20 09:54 Hgb 11.3 gm/dl (10.1-14.3) 06/28/20 09:54 Hct 33.6 % (30.3-42.9) 06/28/20 09:54 MCV 81 fl (79-97) 06/28/20 09:54 MCH 27 pg (28-32) L 06/28/20 09:54 MCHC 34 % (30-34) 06/28/20 09:54 RDW 14.0 % (13.2-15.2) 06/28/20 09:54 Plt Count 361 K/mm3 (140-440) 06/28/20 09:54 Lymph % (Auto) 15.6 % (13.4-35.0) 06/28/20 09:54 [place] % (Auto) 5.6 % (0.0-7.3) 06/28/20 09:54 Eos % (Auto) 0.1 % (0.0-4.3) 06/28/20 09:54 Baso % (Auto) 0.3 % (0.0-1.8) 06/28/20 09:54 Lymph # (Auto) 1.2 K/mm3 (1.2-5.4) 06/28/20 09:54 [place] # (Auto) 0.4 K/mm3 (0.0-0.8) 06/28/20 09:54 Eos # (Auto) 0.0 K/mm3 (0.0-0.4) 06/28/20 09:54 Baso # (Auto) 0.0 K/mm3 (0.0-0.1) 06/28/20 09:54 Seg Neutrophils % 78.4 % (40.0-70.0) H 06/28/20 09:54 Seg Neutrophils # 5.9 K/mm3 (1.8-7.7) 06/28/20 09:54 PT 17.1 Sec. (12.2-14.9) H 06/27/20 05:12 INR 1.36 (0.87-1.13) H 06/27/20 05:12 Sodium 142 mmol/L (137-145) 06/28/20 09:54 Potassium 3.5 mmol/L (3.6-5.0) L 06/28/20 09:54 Chloride 106.2 mmol/L (98-107) 06/28/20 09:54 Carbon Dioxide 26 mmol/L (22-30) 06/28/20 09:54 Anion Gap 13 mmol/L 06/28/20 09:54 BUN 7 mg/dL (7-17) 06/28/20 09:54 Creatinine 0.5 mg/dL (0.6-1.2) L 06/28/20 09:54 Estimated GFR > 60 ml/min 06/28/20 09:54 BUN/Creatinine Ratio 14 % 06/28/20 09:54 Glucose 105 mg/dL (65-100) H 06/28/20 09:54 Calcium 8.8 mg/dL (8.4-10.2) 06/28/20 09:54 Total Bilirubin 0.40 mg/dL (0.1-1.2) 06/25/20 23:36 AST 14 units/L (5-40) 06/25/20 23:36 ALT 13 units/L (7-56) 06/25/20 23:36 Alkaline Phosphatase 84 units/L (35-129) 06/25/20 23:36 Total Protein 7.7 g/dL (6.3-8.2) 06/25/20 23:36 Albumin 3.8 g/dL (3.9-5) L 06/25/20 23:36 Albumin/Globulin Ratio 1.0 % 06/25/20 23:36 Lipase 40 units/L (13-60) 06/25/20 23:36 Urine Color Yellow (Yellow) 06/25/20 00:01 Urine Turbidity Clear (Clear) 06/25/20 00:01 Urine pH 6.0 (5.0-7.0) 06/25/20 00:01 Ur Specific [place] 1.019 (1.003-1.030) 06/25/20 00:01 Urine Protein <15 mg/dl mg/dL (Negative) 06/25/20 00:01 Urine Glucose (UA) Neg mg/dL (Negative) 06/25/20 00:01 Urine Ketones Neg mg/dL (Negative) 06/25/20 00:01 Urine Blood Sm (Negative) 06/25/20 00:01 Urine Nitrite Neg (Negative) 06/25/20 00:01 Urine Bilirubin Neg (Negative) 06/25/20 00:01 Urine Urobilinogen 2.0 mg/dL (<2.0) 06/25/20 00:01 Ur Leukocyte Esterase Neg (Negative) 06/25/20 00:01 Urine WBC (Auto) 7.0 /HPF (0.0-6.0) H 06/25/20 00:01 Urine RBC (Auto) 3.0 /HPF (0.0-6.0) 06/25/20 00:01 U Epithel Cells (Auto) 4.0 /HPF (0-13.0) 06/25/20 00:01 Urine Mucus Few /HPF 06/25/20 00:01 Mas/IV: Voiding Method Toilet IV Catheter Type [Right INT / Saline Lock Forearm] IV Catheter Type [Left Distal Peripheral IV Port Antecubital] Active Medications - Current Medications Current Medications: Generic Name Dose Route Start Last Admin Trade Name Freq PRN Reason Stop Dose Admin Acetaminophen 650 mg 06/26/20 05:58 06/26/20 22:05 Tylenol PO 650 mg Q4H PRN Administration Pain MILD(1-3)/Fever >100.5/JERNIGAN Levofloxacin/Dextrose 750 mg in 150 mls @ 100 mls/hr 06/26/20 10:00 06/28/20 09:13 Levaquin 750mg/150ml IV 100 mls/hr Q24HR MUSA Administration Protocol Metronidazole 500 mg in 100 mls @ 100 mls/hr 06/26/20 14:00 06/29/20 06:16 Flagyl 500 Mg/100 Ml IV 100 mls/hr Q8HR MUSA Administration Protocol Dextrose/Sodium Chloride 1,000 mls @ 75 mls/hr 06/27/20 15:00 06/28/20 18:34 D5ns IV 75 mls/hr DIRECT MUSA Administration Morphine Sulfate 2 mg 06/26/20 05:58 06/26/20 15:17 Morphine IV 2 mg Q4H PRN Administration Pain, Moderate (4-6) Ondansetron HCl 4 mg 06/26/20 05:58 Zofran IV Q8H PRN Nausea And Vomiting Sodium Chloride 10 ml 06/26/20 10:00 06/29/20 05:03 Sodium Chloride Flush Syringe 10 Ml IV 10 ml BID MUSA Administration Sodium Chloride 10 ml 06/26/20 05:58 Sodium Chloride Flush Syringe 10 Ml IV PRN PRN LINE FLUSH
[2020-06-29 07:41] LABS: Blood Urea Nitrogen 6 mg/dL (7-17); Hemolysis Index 1
[2020-06-29 07:45] LABS: BUN/Creatinine Ratio 10
[2020-06-29] MEDS: D5W/0.9% NACL 1,000 ML IV SCH (13:25)
--- NOTE | 2020-06-29 14:07 | Progress Note ---
Assessment and Plan - Patient Problems (1) Abscess of sigmoid colon due to diverticulitis Current Visit: Yes Status: Acute Plan to address problem: 1) Improving Plan: 1) CLD 2) Continue IV antibiotics 3) CBC & BMP in the am Subjective Date of service: 06/29/20 Patient Reports: Positive: no new complaints, feels better, pain is less Objective Vital Signs - 12hr 06/29/20 06/29/20 06/29/20 06:22 08:01 12:46 Temperature 97.7 F 99.0 F Pulse Rate 62 50 L Respiratory 18 18 Rate Blood Pressure 146/87 140/75 O2 Sat by Pulse 98 98 96 Oximetry - Abdomen soft, bowel sounds normal (Minimally tender in the LLQ without rebound or guarding.) - Labs 06/28/20 09:54 06/29/20 06:36 Diabetes panel 06/29/20 Range/Units 06:36 Sodium 142 (137-145) mmol/L Potassium 4.5 D (3.6-5.0) mmol/L Chloride 106.4 (98-107) mmol/L Carbon Dioxide 29 (22-30) mmol/L BUN 6 L (7-17) mg/dL Creatinine 0.6 (0.6-1.2) mg/dL Glucose 103 H (65-100) mg/dL Calcium 9.0 (8.4-10.2) mg/dL Calcium panel 06/29/20 Range/Units 06:36 Calcium 9.0 (8.4-10.2) mg/dL Pituitary panel 06/29/20 Range/Units 06:36 Sodium 142 (137-145) mmol/L Potassium 4.5 D (3.6-5.0) mmol/L Chloride 106.4 (98-107) mmol/L Carbon Dioxide 29 (22-30) mmol/L BUN 6 L (7-17) mg/dL Creatinine 0.6 (0.6-1.2) mg/dL Glucose 103 H (65-100) mg/dL Calcium 9.0 (8.4-10.2) mg/dL Adrenal panel 06/29/20 Range/Units 06:36 Sodium 142 (137-145) mmol/L Potassium 4.5 D (3.6-5.0) mmol/L Chloride 106.4 (98-107) mmol/L Carbon Dioxide 29 (22-30) mmol/L BUN 6 L (7-17) mg/dL Creatinine 0.6 (0.6-1.2) mg/dL Glucose 103 H (65-100) mg/dL Calcium 9.0 (8.4-10.2) mg/dL
[2020-06-30] MEDS: D5W/0.9% NACL 1,000 ML IV SCH ×2 (03:51→22:09)
[2020-06-30] MEDS: metroNIDAZOLE/NS 500 MG/100 ML 500 MG/100 ML BAG IV SCH ×3 (05:02→22:07)
[2020-06-30 05:29] LABS: Basophils % (Auto) 0.5 % (0.0-1.8); Eosinophils % (Auto) 0.7 % (0.0-4.3); Hematocrit 32.8 % (30.3-42.9); Hemoglobin 11.1 gm/dl (10.1-14.3); Lymphocytes # (Auto) 1.5 K/mm3 (1.2-5.4); Lymphocytes % (Auto) 26.6 % (13.4-35.0); Mean Corpuscular HGB Conc 34 % (30-34); Mean Corpuscular Volume 82 fl (79-97); Monocytes # (Auto) 0.4 K/mm3 (0.0-0.8); Platelet Count 363 K/mm3 (140-440); Red Cell Distribution Width 14.1 % (13.2-15.2)
[2020-06-30 05:43] LABS: Blood Urea Nitrogen 6 mg/dL (7-17); Calcium 8.9 mg/dL (8.4-10.2); Hemolysis Index 2
[2020-06-30 05:49] LABS: BUN/Creatinine Ratio 10
--- NOTE | 2020-06-30 07:07 | Progress Note ---
Assessment and Plan Assessment and plan: --Diverticulitis Patient placed on empiric IV antibiotics. General surgeon has also been consulted for evaluation and recommendation. --sigmoid colon abscess Possibility for perforated diverticulitid not drainable per IR, cont iv abx, bowel rest, IV fluid --Hypokalemia, replete, monitor BMP --SIRS w/o sepsis, POA presented with fever, leukocytosis and abdominal abscess cont abx -- DVT prophylaxis Patient placed on sequential compression device. -- Full code status Brief History: 55-year-old female with no significant past medical history presenting to the emergency room complaining of abdominal pain and back pain which has been ongoing for about 1 day along with diarrhea and some low-grade fever at home. Patient was just recently treated at an outside facility for UTI and she had been on Augmentin. Work-up in the emergency room today including CT scan of the abdomen and pelvis reveals: 1. There is relatively severe sigmoid diverticulitis. There is an intramural abscess. There is a small amount of extraluminal gas adjacent to the sigmoid colon. 2. There is a 4.5 cm dermoid in the left adnexa. 3. There is a 12 mm enhancing nodule in the dome of the liver. This is not specific. This may represent an atypical hemangioma. Neoplastic process cannot be excluded . Patient has been started on empiric IV antibiotics and IV fluid. 06/26: General surgeon Dr. Higginbotham has been consulted and recommended percutaneous drainage IR consulted and planned for percutaneous drainage tomorrow. Continue current management and plan, monitor clinically 06/27: Patient Brought downstairs for CT guided drainage of the abdomen and pelvis. Per IR The collection of fluid has been replaced by gas and there is more foci of gas around the inflamed sigmoid colon. Aborted the procedure, repeat CT showed persisted abscess but no perforation. Surgery and IR now recommended medical Mx. cont Iv abx 06/28: Discussed case with Dr. Higginbotham and IR. The collection has been mostly replaced with gas, making drainage suboptimal at this time. Cont abx, keep NPO, CT scan of the abdomen and pelvis with IV contrast in a few days for re- evaluation for possible drainage if the collection changes further, possibly on friday. May need to start on TPN - defer to surgery. cont D5 NS, replete electrolytes as needed. 06/29: Reviewed the notes from Dr. Higginbotham and Dr. Koo. The collection has been mostly replaced with gas, making drainage suboptimal at this time. Cont abx, keep NPO, CT scan of the abdomen and pelvis with IV contrast in a few days for re-evaluation for possible drainage if the collection changes further, possibly on friday. May need to start on TPN - defer to surgery. cont D5 NS, replete electrolytes as needed. 06/30; patient was seen by Dr. Higginbotham and started on clear liquid diet. Continue with IV antibiotics. Will be reevaluated Friday for possible drainage if the condition changes further. 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 Patient does not have any abdominal pain, nausea or vomiting Hospitalist Physical - Physical exam Narrative exam: Not in cardiopulmonary distress. The patient appeared well nourished and normally developed. Vital signs as documented. Head exam is unremarkable. No scleral icterus . Neck is without jugular venous distension, thyromegaly, or carotid bruits. Lungs are clear to auscultation. Cardiac exam reveals regular rate and Rhythm. Abdominal exam no abdominal tenderness, normal bowel sounds. Extremities are nonedematous and both femoral and pedal pulses are normal. MILLING/POLISHING OPERATOR: Alert and oriented 3. No focal weakness. - Constitutional Vitals: Temp Pulse Resp BP Pulse Ox 98.7 F 62 16 128/79 98 06/30/20 06:26 06/30/20 06:26 06/30/20 06:52 06/30/20 06:26 06/30/20 06:52 General appearance: Present: no acute distress, well-nourished Results - Labs CBC & Chem 7: 06/30/20 03:47 06/30/20 03:47 Labs: Laboratory Last Values WBC 5.7 K/mm3 (4.5-11.0) 06/30/20 03:47 RBC 4.00 M/mm3 (3.65-5.03) 06/30/20 03:47 Hgb 11.1 gm/dl (10.1-14.3) 06/30/20 03:47 Hct 32.8 % (30.3-42.9) 06/30/20 03:47 MCV 82 fl (79-97) 06/30/20 03:47 MCH 28 pg (28-32) 06/30/20 03:47 MCHC 34 % (30-34) 06/30/20 03:47 RDW 14.1 % (13.2-15.2) 06/30/20 03:47 Plt Count 363 K/mm3 (140-440) 06/30/20 03:47 Lymph % (Auto) 26.6 % (13.4-35.0) 06/30/20 03:47 [place] % (Auto) 7.0 % (0.0-7.3) 06/30/20 03:47 Eos % (Auto) 0.7 % (0.0-4.3) 06/30/20 03:47 Baso % (Auto) 0.5 % (0.0-1.8) 06/30/20 03:47 Lymph # (Auto) 1.5 K/mm3 (1.2-5.4) 06/30/20 03:47 [place] # (Auto) 0.4 K/mm3 (0.0-0.8) 06/30/20 03:47 Eos # (Auto) 0.0 K/mm3 (0.0-0.4) 06/30/20 03:47 Baso # (Auto) 0.0 K/mm3 (0.0-0.1) 06/30/20 03:47 Seg Neutrophils % 65.2 % (40.0-70.0) 06/30/20 03:47 Seg Neutrophils # 3.7 K/mm3 (1.8-7.7) 06/30/20 03:47 PT 17.1 Sec. (12.2-14.9) H 06/27/20 05:12 INR 1.36 (0.87-1.13) H 06/27/20 05:12 Sodium 141 mmol/L (137-145) 06/30/20 03:47 Potassium 3.6 mmol/L (3.6-5.0) 06/30/20 03:47 Chloride 106.3 mmol/L (98-107) 06/30/20 03:47 Carbon Dioxide 22 mmol/L (22-30) D 06/30/20 03:47 Anion Gap 16 mmol/L 06/30/20 03:47 BUN 6 mg/dL (7-17) L 06/30/20 03:47 Creatinine 0.6 mg/dL (0.6-1.2) 06/30/20 03:47 Estimated GFR > 60 ml/min 06/30/20 03:47 BUN/Creatinine Ratio 10 % 06/30/20 03:47 Glucose 107 mg/dL (65-100) H 06/30/20 03:47 Calcium 8.9 mg/dL (8.4-10.2) 06/30/20 03:47 Total Bilirubin 0.40 mg/dL (0.1-1.2) 06/25/20 23:36 AST 14 units/L (5-40) 06/25/20 23:36 ALT 13 units/L (7-56) 06/25/20 23:36 Alkaline Phosphatase 84 units/L (35-129) 06/25/20 23:36 Total Protein 7.7 g/dL (6.3-8.2) 06/25/20 23:36 Albumin 3.8 g/dL (3.9-5) L 06/25/20 23:36 Albumin/Globulin Ratio 1.0 % 06/25/20 23:36 Lipase 40 units/L (13-60) 06/25/20 23:36 Urine Color Yellow (Yellow) 06/25/20 00:01 Urine Turbidity Clear (Clear) 06/25/20 00:01 Urine pH 6.0 (5.0-7.0) 06/25/20 00:01 Ur Specific [place] 1.019 (1.003-1.030) 06/25/20 00:01 Urine Protein <15 mg/dl mg/dL (Negative) 06/25/20 00:01 Urine Glucose (UA) Neg mg/dL (Negative) 06/25/20 00:01 Urine Ketones Neg mg/dL (Negative) 06/25/20 00:01 Urine Blood Sm (Negative) 06/25/20 00:01 Urine Nitrite Neg (Negative) 06/25/20 00:01 Urine Bilirubin Neg (Negative) 06/25/20 00:01 Urine Urobilinogen 2.0 mg/dL (<2.0) 06/25/20 00:01 Ur Leukocyte Esterase Neg (Negative) 06/25/20 00:01 Urine WBC (Auto) 7.0 /HPF (0.0-6.0) H 06/25/20 00:01 Urine RBC (Auto) 3.0 /HPF (0.0-6.0) 06/25/20 00:01 U Epithel Cells (Auto) 4.0 /HPF (0-13.0) 06/25/20 00:01 Urine Mucus Few /HPF 06/25/20 00:01 Mas/IV: Voiding Method Toilet IV Catheter Type [Right INT / Saline Lock Forearm] IV Catheter Type [Left Distal Peripheral IV Port Antecubital] Active Medications - Current Medications Current Medications: Generic Name Dose Route Start Last Admin Trade Name Freq PRN Reason Stop Dose Admin Acetaminophen 650 mg 06/26/20 05:58 06/26/20 22:05 Tylenol PO 650 mg Q4H PRN Administration Pain MILD(1-3)/Fever >100.5/JERNIGAN Levofloxacin/Dextrose 750 mg in 150 mls @ 100 mls/hr 06/26/20 10:00 06/29/20 09:10 Levaquin 750mg/150ml IV 100 mls/hr Q24HR MUSA Administration Protocol Metronidazole 500 mg in 100 mls @ 100 mls/hr 06/26/20 14:00 06/30/20 05:02 Flagyl 500 Mg/100 Ml IV 100 mls/hr Q8HR MUSA Administration Protocol Dextrose/Sodium Chloride 1,000 mls @ 75 mls/hr 06/27/20 15:00 06/30/20 03:51 D5ns IV 75 mls/hr DIRECT MUSA Administration Morphine Sulfate 2 mg 06/26/20 05:58 06/26/20 15:17 Morphine IV 2 mg Q4H PRN Administration Pain, Moderate (4-6) Ondansetron HCl 4 mg 06/26/20 05:58 Zofran IV Q8H PRN Nausea And Vomiting Sodium Chloride 10 ml 06/26/20 10:00 06/29/20 21:57 Sodium Chloride Flush Syringe 10 Ml IV 10 ml BID MUSA Administration Sodium Chloride 10 ml 06/26/20 05:58 Sodium Chloride Flush Syringe 10 Ml IV PRN PRN LINE FLUSH
--- NOTE | 2020-06-30 13:44 | Progress Note ---
Assessment and Plan - Patient Problems (1) Abscess of sigmoid colon due to diverticulitis Current Visit: Yes Status: Acute Plan to address problem: Patient stable. White blood cell count is normal. No abdominal pain. Plan: 1) continue CLD, will consider advancing diet to fulls in am 2) Continue IV antibiotics 3) Likely repeat CT scan on Friday to follow-up on abscess Thank you for this consultation. Please call with any questions or concerns. Evaluation and treatment of this patient was during the time of the national and state emergency arising from COVID19 coronavirus pandemic. Treatment and procedures performed meet the current and available best practice and guidelines for patient during the COVID pandemic. Subjective Date of service: 06/30/20 Narrative: Patient seen and examined. Patient called daughter for translation. She states she has no pain. No nausea or vomiting. She is tolerating clear liquids. She feels well overall. Objective Vital Signs - 12hr 06/30/20 06/30/20 06:26 06:52 Temperature 98.7 F Pulse Rate 62 Respiratory 16 16 Rate Blood Pressure 128/79 O2 Sat by Pulse 98 98 Oximetry - General physical appearance Narrative Exam: Gen.: Awake, alert, oriented 3. No apparent distress ENT: Trachea midline. No lymphadenopathy. No scleral icterus or conjunctival pallor CV: S1, S2 present Respiratory: No audible wheezes Abdomen: Soft, nondistended, nontender. No rebound, rigidity, guarding Extremities: No clubbing, cyanosis, edema - Labs 06/30/20 03:47 06/30/20 03:47 Diabetes panel 06/30/20 Range/Units 03:47 Sodium 141 (137-145) mmol/L Potassium 3.6 (3.6-5.0) mmol/L Chloride 106.3 (98-107) mmol/L Carbon Dioxide 22 D (22-30) mmol/L BUN 6 L (7-17) mg/dL Creatinine 0.6 (0.6-1.2) mg/dL Glucose 107 H (65-100) mg/dL Calcium 8.9 (8.4-10.2) mg/dL Calcium panel 06/30/20 Range/Units 03:47 Calcium 8.9 (8.4-10.2) mg/dL Pituitary panel 06/30/20 Range/Units 03:47 Sodium 141 (137-145) mmol/L Potassium 3.6 (3.6-5.0) mmol/L Chloride 106.3 (98-107) mmol/L Carbon Dioxide 22 D (22-30) mmol/L BUN 6 L (7-17) mg/dL Creatinine 0.6 (0.6-1.2) mg/dL Glucose 107 H (65-100) mg/dL Calcium 8.9 (8.4-10.2) mg/dL Adrenal panel 06/30/20 Range/Units 03:47 Sodium 141 (137-145) mmol/L Potassium 3.6 (3.6-5.0) mmol/L Chloride 106.3 (98-107) mmol/L Carbon Dioxide 22 D (22-30) mmol/L BUN 6 L (7-17) mg/dL Creatinine 0.6 (0.6-1.2) mg/dL Glucose 107 H (65-100) mg/dL Calcium 8.9 (8.4-10.2) mg/dL
--- NOTE | 2020-07-01 07:00 | Progress Note ---
Assessment and Plan Assessment and plan: --Diverticulitis Patient placed on empiric IV antibiotics. General surgeon has also been consulted for evaluation and recommendation. --sigmoid colon abscess Possibility for perforated diverticulitid not drainable per IR, cont iv abx, bowel rest, IV fluid --Hypokalemia, replete, monitor BMP --SIRS w/o sepsis, POA presented with fever, leukocytosis and abdominal abscess cont abx -- DVT prophylaxis Patient placed on sequential compression device. -- Full code status Brief History: 55-year-old female with no significant past medical history presenting to the emergency room complaining of abdominal pain and back pain which has been ongoing for about 1 day along with diarrhea and some low-grade fever at home. Patient was just recently treated at an outside facility for UTI and she had been on Augmentin. Work-up in the emergency room today including CT scan of the abdomen and pelvis reveals: 1. There is relatively severe sigmoid diverticulitis. There is an intramural abscess. There is a small amount of extraluminal gas adjacent to the sigmoid colon. 2. There is a 4.5 cm dermoid in the left adnexa. 3. There is a 12 mm enhancing nodule in the dome of the liver. This is not specific. This may represent an atypical hemangioma. Neoplastic process cannot be excluded . Patient has been started on empiric IV antibiotics and IV fluid. 06/26: General surgeon Dr. Higginbotham has been consulted and recommended percutaneous drainage IR consulted and planned for percutaneous drainage tomorrow. Continue current management and plan, monitor clinically 06/27: Patient Brought downstairs for CT guided drainage of the abdomen and pelvis. Per IR The collection of fluid has been replaced by gas and there is more foci of gas around the inflamed sigmoid colon. Aborted the procedure, repeat CT showed persisted abscess but no perforation. Surgery and IR now recommended medical Mx. cont Iv abx 06/28: Discussed case with Dr. Higginbotham and IR. The collection has been mostly replaced with gas, making drainage suboptimal at this time. Cont abx, keep NPO, CT scan of the abdomen and pelvis with IV contrast in a few days for re- evaluation for possible drainage if the collection changes further, possibly on friday. May need to start on TPN - defer to surgery. cont D5 NS, replete electrolytes as needed. 06/29: Reviewed the notes from Dr. Higginbotham and Dr. Koo. The collection has been mostly replaced with gas, making drainage suboptimal at this time. Cont abx, keep NPO, CT scan of the abdomen and pelvis with IV contrast in a few days for re-evaluation for possible drainage if the collection changes further, possibly on friday. May need to start on TPN - defer to surgery. cont D5 NS, replete electrolytes as needed. 06/30; patient was seen by Dr. Higginbotham and started on clear liquid diet. Continue with IV antibiotics. Will be reevaluated Friday for possible drainage if the condition changes further. 07/01; patient did not have any complaints. Continue with IV antibiotics. Repeat CT on Friday. General surgery is following the patient. History Interval history: Patient was seen and evaluated this morning Admitted for diverticulitis with abscess collection Patient did not have any complaints Patient tolerated clear liquid diet and will advance to full liquid diet Hospitalist Physical - Physical exam Narrative exam: Not in cardiopulmonary distress. The patient appeared well nourished and normally developed. Vital signs as documented. Head exam is unremarkable. No scleral icterus . Neck is without jugular venous distension, thyromegaly, or carotid bruits. Lungs are clear to auscultation. Cardiac exam reveals regular rate and Rhythm. Abdominal exam no abdominal tenderness, normal bowel sounds. Extremities are nonedematous and both femoral and pedal pulses are normal. DATA MANAGER: Alert and oriented 3. No focal weakness. - Constitutional Vitals: Temp Pulse Resp BP Pulse Ox 98.4 F 55 L 20 135/74 99 06/30/20 23:23 06/30/20 23:23 06/30/20 23:23 06/30/20 23:23 06/30/20 23:23 General appearance: Present: no acute distress, well-nourished Results - Labs CBC & Chem 7: 06/30/20 03:47 06/30/20 03:47 Labs: Laboratory Last Values WBC 5.7 K/mm3 (4.5-11.0) 06/30/20 03:47 RBC 4.00 M/mm3 (3.65-5.03) 06/30/20 03:47 Hgb 11.1 gm/dl (10.1-14.3) 06/30/20 03:47 Hct 32.8 % (30.3-42.9) 06/30/20 03:47 MCV 82 fl (79-97) 06/30/20 03:47 MCH 28 pg (28-32) 06/30/20 03:47 MCHC 34 % (30-34) 06/30/20 03:47 RDW 14.1 % (13.2-15.2) 06/30/20 03:47 Plt Count 363 K/mm3 (140-440) 06/30/20 03:47 Lymph % (Auto) 26.6 % (13.4-35.0) 06/30/20 03:47 [place] % (Auto) 7.0 % (0.0-7.3) 06/30/20 03:47 Eos % (Auto) 0.7 % (0.0-4.3) 06/30/20 03:47 Baso % (Auto) 0.5 % (0.0-1.8) 06/30/20 03:47 Lymph # (Auto) 1.5 K/mm3 (1.2-5.4) 06/30/20 03:47 [place] # (Auto) 0.4 K/mm3 (0.0-0.8) 06/30/20 03:47 Eos # (Auto) 0.0 K/mm3 (0.0-0.4) 06/30/20 03:47 Baso # (Auto) 0.0 K/mm3 (0.0-0.1) 06/30/20 03:47 Seg Neutrophils % 65.2 % (40.0-70.0) 06/30/20 03:47 Seg Neutrophils # 3.7 K/mm3 (1.8-7.7) 06/30/20 03:47 PT 17.1 Sec. (12.2-14.9) H 06/27/20 05:12 INR 1.36 (0.87-1.13) H 06/27/20 05:12 Sodium 141 mmol/L (137-145) 06/30/20 03:47 Potassium 3.6 mmol/L (3.6-5.0) 06/30/20 03:47 Chloride 106.3 mmol/L (98-107) 06/30/20 03:47 Carbon Dioxide 22 mmol/L (22-30) D 06/30/20 03:47 Anion Gap 16 mmol/L 06/30/20 03:47 BUN 6 mg/dL (7-17) L 06/30/20 03:47 Creatinine 0.6 mg/dL (0.6-1.2) 06/30/20 03:47 Estimated GFR > 60 ml/min 06/30/20 03:47 BUN/Creatinine Ratio 10 % 06/30/20 03:47 Glucose 107 mg/dL (65-100) H 06/30/20 03:47 Calcium 8.9 mg/dL (8.4-10.2) 06/30/20 03:47 Total Bilirubin 0.40 mg/dL (0.1-1.2) 06/25/20 23:36 AST 14 units/L (5-40) 06/25/20 23:36 ALT 13 units/L (7-56) 06/25/20 23:36 Alkaline Phosphatase 84 units/L (35-129) 06/25/20 23:36 Total Protein 7.7 g/dL (6.3-8.2) 06/25/20 23:36 Albumin 3.8 g/dL (3.9-5) L 06/25/20 23:36 Albumin/Globulin Ratio 1.0 % 06/25/20 23:36 Lipase 40 units/L (13-60) 06/25/20 23:36 Urine Color Yellow (Yellow) 06/25/20 00:01 Urine Turbidity Clear (Clear) 06/25/20 00:01 Urine pH 6.0 (5.0-7.0) 06/25/20 00:01 Ur Specific [place] 1.019 (1.003-1.030) 06/25/20 00:01 Urine Protein <15 mg/dl mg/dL (Negative) 06/25/20 00:01 Urine Glucose (UA) Neg mg/dL (Negative) 06/25/20 00:01 Urine Ketones Neg mg/dL (Negative) 06/25/20 00:01 Urine Blood Sm (Negative) 06/25/20 00:01 Urine Nitrite Neg (Negative) 06/25/20 00: Urine Bilirubin Neg (Negative) 06/25/20 00:01 Urine Urobilinogen 2.0 mg/dL (<2.0) 06/25/20 00:01 Ur Leukocyte Esterase Neg (Negative) 06/25/20 00:01 Urine WBC (Auto) 7.0 /HPF (0.0-6.0) H 06/25/20 00:01 Urine RBC (Auto) 3.0 /HPF (0.0-6.0) 06/25/20 00:01 U Epithel Cells (Auto) 4.0 /HPF (0-13.0) 06/25/20 00:01 Urine Mucus Few /HPF 06/25/20 00:01 Mas/IV: Voiding Method Toilet IV Catheter Type [Left Forearm Peripheral IV ] IV Catheter Type [Right INT / Saline Lock Forearm] IV Catheter Type [Left Distal Peripheral IV Port Antecubital] Active Medications - Current Medications Current Medications: Generic Name Dose Route Start Last Admin Trade Name Freq PRN Reason Stop Dose Admin Acetaminophen 650 mg 06/26/20 05:58 06/26/20 22:05 Tylenol PO 650 mg Q4H PRN Administration Pain MILD(1-3)/Fever >100.5/JERNIGAN Levofloxacin/Dextrose 750 mg in 150 mls @ 100 mls/hr 06/26/20 10:00 06/30/20 10:12 Levaquin 750mg/150ml IV 100 mls/hr Q24HR MUSA Administration Protocol Metronidazole 500 mg in 100 mls @ 100 mls/hr 06/26/20 14:00 06/30/20 22:07 Flagyl 500 Mg/100 Ml IV 100 mls/hr Q8HR MUSA Administration Protocol Dextrose/Sodium Chloride 1,000 mls @ 75 mls/hr 06/27/20 15:00 06/30/20 22:09 D5ns IV 75 mls/hr DIRECT MUSA Administration Morphine Sulfate 2 mg 06/26/20 05:58 06/26/20 15:17 Morphine IV 2 mg Q4H PRN Administration Pain, Moderate (4-6) Ondansetron HCl 4 mg 06/26/20 05:58 Zofran IV Q8H PRN Nausea And Vomiting Sodium Chloride 10 ml 06/26/20 10:00 06/30/20 22:09 Sodium Chloride Flush Syringe 10 Ml IV 10 ml BID MUSA Administration Sodium Chloride 10 ml 06/26/20 05:58 Sodium Chloride Flush Syringe 10 Ml IV PRN PRN LINE FLUSH
[2020-07-01] MEDS: metroNIDAZOLE/NS 500 MG/100 ML 500 MG/100 ML BAG IV SCH ×3 (07:30→21:33)
[2020-07-01] MEDS: D5W/0.9% NACL 1,000 ML IV SCH ×2 (09:59→21:32)
--- NOTE | 2020-07-01 15:56 | Progress Note ---
Assessment and Plan (1) Abscess of sigmoid colon due to diverticulitis Current Visit: Yes Status: Acute Plan to address problem: Patient stable. No abdominal pain. Plan: 1) May advance to full liquid diet, do not advance further 2) Continue IV antibiotics 3) discussed plan with Dr. Koo. Will repeat CT scan on Friday to follow-up on abscess I am covering for Dr. Higginbotham until 07/02. Please call with any questions or concerns. Evaluation and treatment of this patient was during the time of the national and state emergency arising from COVID19 coronavirus pandemic. Treatment and procedures performed meet the current and available best practice and guidelines for patient during the COVID pandemic. Subjective Date of service: 07/01/20 Narrative: Patient seen and examined. No acute complaints. Denies pain. No fevers or chills. Tolerating diet. Objective Vital Signs - 12hr 07/01/20 07/01/20 05:59 11:20 Temperature 97.8 F 97.4 F L Pulse Rate 50 L 50 L Respiratory 18 20 Rate Blood Pressure 141/75 84/60 O2 Sat by Pulse 99 98 Oximetry - General physical appearance Narrative Exam: Gen.: Awake, alert, oriented 3. No apparent distress ENT: Trachea midline. No lymphadenopathy. No scleral icterus or conjunctival pallor CV: S1, S2 present Respiratory: No audible wheezes Abdomen: Soft, nondistended, nontender. No rebound, rigidity, guarding Extremities: No clubbing, cyanosis, edema - Labs 06/30/20 03:47 06/30/20 03:47
[2020-07-02] MEDS: metroNIDAZOLE/NS 500 MG/100 ML 500 MG/100 ML BAG IV SCH (06:02)
--- NOTE | 2020-07-02 07:23 | Progress Note ---
Subjective Date of service: 07/02/20 Interval history: 55-year-old female with no significant past medical history presenting to the emergency room complaining of abdominal pain and back pain which has been ongoing for about 1 day along with diarrhea and some low-grade fever at home. Patient was just recently treated at an outside facility for UTI and she had been on Augmentin. Work-up in the emergency room today including CT scan of the abdomen and pelvis reveals: 1. There is relatively severe sigmoid diverticulitis. There is an intramural abscess. There is a small amount of extraluminal gas adjacent to the sigmoid colon. 2. There is a 4.5 cm dermoid in the left adnexa. 3. There is a 12 mm enhancing nodule in the dome of the liver. This is not specific. This may represent an atypical hemangioma. Neoplastic process cannot be excluded . Patient has been started on empiric IV antibiotics and IV fluid. 06/26: General surgeon Dr. Higginbotham has been consulted and recommended percutaneous drainage IR consulted and planned for percutaneous drainage tomorrow. Continue current management and plan, monitor clinically 06/27: Patient Brought downstairs for CT guided drainage of the abdomen and pelv is. Per IR The collection of fluid has been replaced by gas and there is more foci of gas around the inflamed sigmoid colon. Aborted the procedure, repeat CT showed persisted abscess but no perforation. Surgery and IR now recommended medical Mx. cont Iv abx 06/28: Discussed case with Dr. Higginbotham and IR. The collection has been mostly replaced with gas, making drainage suboptimal at this time. Cont abx, keep NPO, CT scan of the abdomen and pelvis with IV contrast in a few days for re-evaluation for possible drainage if the collection changes further, possibly on friday. May need to start on TPN - defer to surgery. cont D5 NS, replete electrolytes as needed. 06/29: Reviewed the notes from Dr. Higginbotham and Dr. Koo. The collection has been mostly replaced with gas, making drainage suboptimal at this time. Cont abx, keep NPO, CT scan of the abdomen and pelvis with IV contrast in a few days for re-evaluation for possible drainage if the collection changes further, possibly on friday. May need to start on TPN - defer to surgery. cont D5 NS, replete electrolytes as needed. 06/30; patient was seen by Dr. Higginbotham and started on clear liquid diet. Continue with IV antibiotics. Will be reevaluated Friday for possible drainage if the condition changes further. 07/01; patient did not have any complaints. Continue with IV antibiotics. Repeat CT on Friday. General surgery is following the patient. 07/02 : Patient is resting in the bed, awake and alert, no apparent distress, offers no specific complaints, denies any abdominal pain, nausea or vomiting She denies any fever or chills. Denies chest pain or shortness of breath. General surgery note reviewed A/P: -Sigmoid diverticulitis with abscess formation Abdomen is benign General surgery note reviewed Medical management for now Continue IV antibiotics with levofloxacin and metronidazole Repeat CT of the abdomen and pelvis with contrast tomorrow Continue full liquids --Hypokalemia: improved --SIRS w/o sepsis, POA presented with fever, leukocytosis and abdominal abscess cont abx Thrombocytopenia: Mild, stable Monitor platelets Asymptomatic bradycardia: Heart rate is in low to mid 50s Blood pressure is stable Patient is not on any beta-blockers or calcium channel blockers Will monitor -- DVT prophylaxis SCDs. Objective - Constitutional Vitals: Vital Signs - 12hr 07/01/20 07/01/20 07/02/20 21:09 22:00 05:55 Temperature 98.2 F 99.0 F Pulse Rate 59 L 51 L Respiratory 16 17 20 Rate Respiratory 17 Rate [Abdomen] Blood Pressure 102/64 137/79 O2 Sat by Pulse 99 99 98 Oximetry General appearance: Present: no acute distress - EENT Eyes: PERRL, EOM intact ENT: hearing intact, clear oral mucosa - Neck Neck: supple, normal ROM - Respiratory Respiratory effort: normal Respiratory: bilateral: CTA - Cardiovascular Rhythm: regular Heart Sounds: Present: S1 & S2 Extremities: No edema - Gastrointestinal General gastrointestinal: Present: soft, non-tender Rectal Exam: deferred - Integumentary Integumentary: clear - Musculoskeletal Musculoskeletal: strength equal bilaterally - Neurologic Neurologic: no focal deficits - Psychiatric Psychiatric: appropriate mood/affect - Labs CBC & Chem 7: 06/30/20 03:47 06/30/20 03:47
--- NOTE | 2020-07-02 14:15 | Progress Note ---
Assessment and Plan (1) Abscess of sigmoid colon due to diverticulitis Current Visit: Yes Status: Acute Plan to address problem: Patient stable. No abdominal pain. Plan: 1) full liquid diet, n.p.o. past midnight (for possible procedure if abscess detected on CT scan) 2) Continue IV antibiotics 3) repeat CT scan abdomen and pelvis with IV contrast tomorrow 07/03/2020 Plan was discussed with the patient's daughter yesterday. Dr. Higginbotham to resume care of the patient tomorrow. Please call with any questions or concerns. Evaluation and treatment of this patient was during the time of the national and state emergency arising from COVID19 coronavirus pandemic. Treatment and procedures performed meet the current and available best practice and guidelines for patient during the COVID pandemic. Subjective Date of service: 07/02/20 Narrative: Patient seen and examined. She continues to deny pain. Afebrile. Tolerating diet. Objective Vital Signs - 12hr 07/02/20 07/02/20 05:55 11:14 Temperature 99.0 F 98.3 F Pulse Rate 51 L 53 L Respiratory 20 20 Rate Blood Pressure 137/79 120/67 O2 Sat by Pulse 98 98 Oximetry - General physical appearance Narrative Exam: Gen.: Awake, alert, oriented 3. No apparent distress ENT: Trachea midline. No lymphadenopathy. No scleral icterus or conjunctival pallor CV: S1, S2 present Respiratory: No audible wheezes Abdomen: Soft, nondistended, nontender. No rebound, rigidity, guarding Extremities: No clubbing, cyanosis, edema - Labs 06/30/20 03:47 06/30/20 03:47
[2020-07-02] MEDS: metroNIDAZOLE 500 MG TAB PO SCH ×2 (14:18→22:24)
[2020-07-03] MEDS: metroNIDAZOLE 500 MG TAB PO SCH (06:40)
--- NOTE | 2020-07-03 09:29 | Cat Scan Report ---
CT ABDOMEN AND PELVIS WITH CONTRAST HISTORY: Follow-up abscess, diverticulitis COMPARISON: 06/27/2020 TECHNIQUE: Axial CT images were obtained through the abdomen and pelvis after 100 cc of Omnipaque 300 intravenously. Sagittal and coronal reformatted images. All CT scans at this location are performed using CT dose reduction for ALARA by means of automated exposure control. FINDINGS: CT ABDOMEN: Lung Bases: Clear. Liver: Stable 2.6 cm cyst in the right hepatic lobe and 1.4 cm cavernous hemangioma in the anterior r ight hepatic lobe. No suspicious liver lesion. Biliary: No significant abnormality. Spleen: No significant abnormality. Unenlarged. Pancreas: No significant abnormality. Adrenals: No significant abnormality. Kidneys: No significant abnormality. Lymphatics: No lymphadenopathy. Vasculature: No significant abnormality. Bowel/Peritoneum: Diverticulosis is again noted. Inflammatory changes in the sigmoid colon have decre ased by 50-75%. The previously described developing fluid collection has decreased from 5.3 cm to 1.3 cm in maximum dimension. Small free fluid in the pelvis has increased slightly. No new abscess. The remaining bowel loops and appendix are unremarkable. CT PELVIS: : Stable 3.8 cm left adnexal dermoid. The uterus, right adnexa and bladder are unremarkable. Osseous Structures: Stable mild thoracolumbar spondylosis. Additional Findings: None IMPRESSION: 50-75% improvement in the sigmoid diverticulitis. Near resolution of the developing left lower quadra nt fluid collection. Signer Name: Brendon Peter Jr, MD Signed: 07/03/2020 9:25 AM Workstation Name: [id number]
[2020-07-03] MEDS ORDERED: levoFLOXacin 500 MG TAB PO SCH (10:00)
--- NOTE | 2020-07-03 12:24 | Event Note ---
Date: 07/03/[address] scan with contrast. Much of the diverticular collection has improved with residual gas noted in many parts of the diverticular collection suggesting some communication with the bowel which probably led to internal drainage. Given the improvement in the collection, no need for percutaneous drainage at this time.
--- NOTE | 2020-07-03 12:42 | Discharge Summary ---
Providers - Providers Date of Admission: 06/26/20 05:34 Date of discharge: 07/03/20 Attending physician: AGNIESZKA PRESTON 06/26/20 05:40 Consult to Physician [CONS] Urgent Comment: Consulting Provider: ALEXANDER HIGGINBOTHAM Physician Instructions: Reason For Exam: Diverticulitis with sigmoid abscess 06/26/20 11:23 Consult to Interventional Radiology [CONS] Routine Consulting Provider: ENRICO SNEED Reason For Exam: need percutaneous drainage Place consult to:: dr. sneed Notified:: office Phone number called:: [phone] Was contact made?: No Time called:: 11:39 07/01/20 12:20 Consult to Dietitian/Nutrition [CONS] Routine Physician Instructions: Reason For Exam: Reason for Consult: diverticulitis, diet education [facility] Condition: Stable Pertinent studies: CT of the abdomen and pelvis with IV and oral contrast Hospital course: 55-year-old female with no significant past medical history presenting to the emergency room complaining of abdominal pain and back pain which has been ongoing for about 1 day along with diarrhea and some low-grade fever at home. Patient was just recently treated at an outside facility for UTI and she had been on Augmentin. Work-up in the emergency room today including CT scan of the abdomen and pelvis reveals: 1. There is relatively severe sigmoid diverticulitis. There is an intramural abscess. There is a small amount of extraluminal gas adjacent to the sigmoid colon. 2. There is a 4.5 cm dermoid in the left adnexa. 3. There is a 12 mm enhancing nodule in the dome of the liver. This is not specific. This may represent an atypical hemangioma. Neoplastic process cannot be excluded . Patient has been started on empiric IV antibiotics and IV fluid. 06/26: General surgeon Dr. Higginbotham has been consulted and recommended percutaneous drainage IR consulted and planned for percutaneous drainage tomorrow. Continue current management and plan, monitor clinically 06/27: Patient Brought downstairs for CT guided drainage of the abdomen and pelvis. Per IR The collection of fluid has been replaced by gas and there is more foci of gas around the inflamed sigmoid colon. Aborted the procedure, repeat CT showed persisted abscess but no perforation. Surgery and IR now recommended medical Mx. cont Iv abx 06/28: Discussed case with Dr. Higginbotham and IR. The collection has been mostly replaced with gas, making drainage suboptimal at this time. Cont abx, keep NPO, CT scan of the abdomen and pelvis with IV contrast in a few days for re- evaluation for possible drainage if the collection changes further, possibly on friday. May need to start on TPN - defer to surgery. cont D5 NS, replete electrolytes as needed. 06/29: Reviewed the notes from Dr. Higginbotham and Dr. Koo. The collection has been mostly replaced with gas, making drainage suboptimal at this time. Cont abx, keep NPO, CT scan of the abdomen and pelvis with IV contrast in a few days for re-evaluation for possible drainage if the collection changes further, possibly on friday. May need to start on TPN - defer to surgery. cont D5 NS, replete electrolytes as needed. 06/30; patient was seen by Dr. Higginbotham and started on clear liquid diet. Continue with IV antibiotics. Will be reevaluated Friday for possible drainage if the condition changes further. 07/01; patient did not have any complaints. Continue with IV antibiotics. Repeat CT on Friday. General surgery is following the patient. 07/02 : Patient is resting in the bed, awake and alert, no apparent distress, offers no specific complaints, denies any abdominal pain, nausea or vomiting She denies any fever or chills. Denies chest pain or shortness of breath. General surgery note reviewed 07/03 patient offers no specific complaints, no fever or chills or abdominal pain or nausea or vomiting. Repeat CT of the abdomen and pelvis results rev iewed Medically stable for discharge on oral antibiotics A/P: -Sigmoid diverticulitis with abscess formation improving Per CT scan report diverticulitis has improved by greater than 75% and there is a near complete resolution of the fluid collection in the left lower quadrant Abdomen is benign General surgery note reviewed We will discharge the patient on oral antibiotics Her abdomen is benign and she does not need any pain medication --Hypokalemia: improved --SIRS w/o sepsis, POA presented with fever, leukocytosis and abdominal abscess She is afebrile and leukocytosis has improved Thrombocytopenia: Mild, stable Monitor platelets Asymptomatic bradycardia: Heart rate is in low to mid 50s But today the heart rate is in the 60-70 range Blood pressure is stable Patient is not on any beta-blockers or calcium channel blockers Disposition: DC-01 TO HOME OR SELFCARE Time spent for discharge: 38 min Core Measure Documentation - Palliative Care Palliative Care/ Comfort Measures: Not Applicable - Core Measures Any of the following diagnoses?: none Exam - Constitutional Vitals: Temp Pulse Resp BP Pulse Ox 98.0 F 70 18 120/73 97 07/03/20 05:18 07/03/20 05:18 07/03/20 05:18 07/03/20 05:18 07/03/20 05:18 General appearance: Present: no acute distress, well-nourished - EENT Eyes: Present: PERRL, EOM intact ENT: hearing intact, clear oral mucosa - Neck Neck: Present: supple, normal ROM - Respiratory Respiratory effort: normal Respiratory: bilateral: CTA - Cardiovascular Rhythm: regular Heart Sounds: Present: S1 & S2 - Extremities Extremities: No edema - Abdominal General gastrointestinal: Present: soft, non-tender - Rectal Rectal Exam: deferred - Integumentary Integumentary: Present: clear - Musculoskeletal Musculoskeletal: strength equal bilaterally - Psychiatric Psychiatric: appropriate mood/affect - Neurologic Neurologic: no focal deficits Plan Activity: no restrictions, advance as tolerated Weight Bearing Status: Full Weight Bearing Diet: regular, low fat, low cholesterol, advance as tolerated Follow up with: KJ MCGOWAN MD [Primary Care Provider] - 3-5 Days DOMINIC VALERO DO [Staff Physician] - 10 Days Prescriptions: Ciprofloxacin [Ciprofloxacin ORAL LIQ] 500 mg PO Q12H #14 ml metroNIDAZOLE [Flagyl] 500 mg PO Q8HR #20 tablet
--- NOTE | 2020-07-03 13:08 | Progress Note ---
Assessment and Plan - Patient Problems (1) Abscess of sigmoid colon due to diverticulitis Current Visit: Yes Status: Acute Plan to address problem: 1) Agree with discharge home 2) High fiber diet 3) Pt can f/u in my office in 2 weeks Subjective Date of service: 07/03/20 Patient Reports: Positive: no new complaints, feels better, tolerating a regular diet Objective Vital Signs - 12hr 07/03/20 05:18 Temperature 98.0 F Pulse Rate 70 Respiratory 18 Rate Blood Pressure 120/73 O2 Sat by Pulse 97 Oximetry - Abdomen [id number]_[id number] 4, PM_46_EXABD1 6, PM_46_[id number] 8 Hernia: none - Labs 06/30/20 03:47 06/30/20 03:47 - Imaging CT scan - abdomen: report reviewed CT Scan - head: report reviewed
[2020-07-03] MEDS ORDERED: metroNIDAZOLE/NS 500 MG/100 ML 500 MG/100 ML BAG IV SCH (14:00)
[2020-07-03 14:29] VITALS: BP 102/70
== END 2020-07-03 15:30 | disposition home or self-care (01) | DRG 392 ==
LOC: ED 22:03 → 3A 06-26 05:34
PROVIDERS: ADMIT Internal Medicine Geriatric Medicine; ATTEND Internal Medicine
DX: K57.20 Diverticulitis of large intestine with perforation and abscess without bleeding (principal); R65.10 Systemic inflammatory response syndrome (SIRS) of non-infectious origin without acute organ dysfunction; E87.6 Hypokalemia; D69.6 Thrombocytopenia, unspecified; R00.1 Bradycardia, unspecified
CPT/HCPCS: 36415; 74177; 80048; 80053; 81001; 83690; 85025; 85610; 94640; 96365; 96366; 96375; 96376; G0378; J1956; J2250; J2270; J2405; J3010; J3480; J7030; J7042; Q9967